=== PATIENT | male | born 1930 | race Caucasian/White ===

== ENCOUNTER 2017-10-01 05:02 | Emergency (ER) | payer MEDICARE, OTHER ==
[~2017-10-01] VITALS: Ht 172.7 cm; Wt 59.0 kg
[~2017-10-01 05:02] MED LIST: ALBU18HF2 IH; ALPR0.25 PO; BENA20TA3 PO
[2017-10-01 06:31] LABS: BASOPHILS % 0.5 % (0.0-2.0); HEMATOCRIT. 39.1 % (42.0-52.0); LYMPHOCYTES % 13.4 % (20.0-50.0); MEAN CORPUSCULAR HEMOGLOBIN 31.5 pg (28.0-32.0); MEAN CORPUSCULAR VOLUME 95.2 fL (80.0-94.0); MEAN PLATELET VOLUME 7.5 fl (7.4-10.4); MONOCYTES % 7.1 % (2.0-8.0); PLATELET 127 x1000/uL (130-400); RED BLOOD CELL COUNT 4.11 mill/uL (4.7-6.1); RED CELL DISTRIBUTION WIDTH 14.2 % (11.6-14.6)
[2017-10-01] MEDS ORDERED: ONDANSETRON HCL 4MG/2ML VIAL IV STA (06:31)
[2017-10-01] MEDS ORDERED: MORPHINE SULFATE 4 MG/ML CPJ (NOT FOR IM USE) IV STA (06:31)
[2017-10-01 06:38] LABS: PARTIAL THROMBOPLASTIN TIME 26.4 sec (23.4-31.0); PROTHROMBIN TIME 10.9 sec (9.4-11.6)
[2017-10-01 06:51] LABS: CHLORIDE 99 mEq/L (98-107)
[2017-10-01 09:31] LABS: KETONES URINE NEGATIVE (NEGATIVE); LEUKOCYTE ESTERASE URINE NEGATIVE (NEGATIVE); NITRITE URINE NEGATIVE (NEGATIVE); OCCULT BLOOD URINE NEGATIVE (NEGATIVE); PH URINE 7.5 (4.5-8.0); PROTEIN URINE NEGATIVE (NEGATIVE); UROBILINOGEN URINE 0.2 E.U./dL (0.2-1.0)
[2017-10-01 09:34] LABS: CLARITY URINE CLEAR (CLEAR); COLOR URINE PALE YELLOW (YELLOW)
[2017-10-01 11:58] VITALS: BP 156/80
== END 2017-10-01 12:03 | disposition home or self-care (01) ==
LOC: ER 05:15
DX: S30.0XXA Contusion of lower back and pelvis, initial encounter (principal); I10 Essential (primary) hypertension; J45.909 Unspecified asthma, uncomplicated; E11.9 Type 2 diabetes mellitus without complications; W01.0XXA Fall on same level from slipping, tripping and stumbling without subsequent striking against object, initial encounter; Y93.89 Activity, other specified; Y92.010 Kitchen of single-family (private) house as the place of occurrence of the external cause
CPT/HCPCS: 36415; 71045; 72100; 73521; 80053; 81003; 82962; 83690; 84484; 85025; 85610; 85730; 87086; 93005; 96374; 96375; 99285; J2270; J2405

== ENCOUNTER 2017-10-05 22:13 | Emergency (ER) | payer MEDICARE, OTHER ==
[~2017-10-05] VITALS: Ht 172.7 cm; Wt 59.0 kg
[2017-10-05] MEDS ORDERED: LIDOCAINE 5% PATCH TOP STA (23:07)
[2017-10-06 05:43] VITALS: BP 134/71
== END 2017-10-06 05:44 | disposition home or self-care (01) ==
LOC: ER 22:13
DX: S22.089A Unspecified fracture of T11-T12 vertebra, initial encounter for closed fracture (principal); I10 Essential (primary) hypertension; E11.9 Type 2 diabetes mellitus without complications; J45.909 Unspecified asthma, uncomplicated; W01.0XXA Fall on same level from slipping, tripping and stumbling without subsequent striking against object, initial encounter; Y93.89 Activity, other specified; Y99.8 Other external cause status; Y92.89 Other specified places as the place of occurrence of the external cause
CPT/HCPCS: 72131; 72192; 82962; 99284

== ENCOUNTER 2018-01-31 04:15 | Emergency (ER) | payer MEDICARE, OTHER ==
[~2018-01-31] VITALS: Ht 162.6 cm; Wt 73.0 kg
[~2018-01-31 04:15] MED LIST changes: +BENA20TA10 PO; -BENA20TA3 PO
[2018-01-31] MEDS ORDERED: ALBUTEROL (0.083%) 2.5MG/3ML NEB HHN STA (04:42)
[2018-01-31] MEDS ORDERED: IPRATROPIUM BROMIDE (0.02%) 0.5MG/2.5ML NEB HHN STA (04:42)
[2018-01-31] MEDS ORDERED: ALPRAZOLAM 0.25 MG TABLET PO ONE (04:45)
[2018-01-31 08:09] VITALS: BP 125/57
== END 2018-01-31 08:26 | disposition home or self-care (01) ==
LOC: ER 04:35
DX: J44.9 Chronic obstructive pulmonary disease, unspecified (principal); Z76.0 Encounter for issue of repeat prescription; I10 Essential (primary) hypertension; F41.9 Anxiety disorder, unspecified; E11.9 Type 2 diabetes mellitus without complications; Z99.81 Dependence on supplemental oxygen
CPT/HCPCS: 93005; 94640; 99283; J7611

== ENCOUNTER 2018-02-05 05:48 | Emergency (ER) | payer MEDICARE, OTHER ==
[~2018-02-05] VITALS: Ht 165.1 cm; Wt 64.0 kg
[2018-02-05 07:36] VITALS: BP 153/73
== END 2018-02-05 10:21 | disposition home or self-care (01) ==
LOC: ER 05:48
DX: R51 Headache (principal); I10 Essential (primary) hypertension; E11.9 Type 2 diabetes mellitus without complications; J44.9 Chronic obstructive pulmonary disease, unspecified; Z79.899 Other long term (current) drug therapy; Z90.2 Acquired absence of lung [part of]
CPT/HCPCS: 99283

== ENCOUNTER 2018-03-25 05:57 | Inpatient (IN) | payer MEDICARE, OTHER ==
[~2018-03-25] VITALS: Ht 182.9 cm; Wt 63.5 kg
[2018-03-25] MEDS ORDERED: LORAZEPAM 2MG/ML CPJ ONE (06:40)
[2018-03-25] MEDS ORDERED: LORAZEPAM 2MG/ML CPJ IM ONE (06:45)
[2018-03-25] MEDS ORDERED: LORAZEPAM 2MG/ML CPJ IM STA (06:50)
[2018-03-25] MEDS ORDERED: SODIUM CHLORIDE 0.9% 1,000 ML IV ONE (06:52)
[2018-03-25 07:28] LABS: BASOPHILS % 0.7 % (0.0-2.0); EOSINOPHILS % 1.6 % (0.0-5.0); HEMATOCRIT. 37.1 % (42.0-52.0); HEMOGLOBIN. 11.9 g/dL (14.0-18.0); LYMPHOCYTES % 15.9 % (20.0-50.0); MEAN CORPUSCULAR HEMOGLOBIN 31.3 pg (28.0-32.0); MEAN CORPUSCULAR VOLUME 97.9 fL (80.0-94.0); MEAN PLATELET VOLUME 8.3 fl (7.4-10.4); MONOCYTES % 8.9 % (2.0-8.0); NEUTROPHILS % 72.9 % (40.0-76.0); PLATELET 141 x1000/uL (130-400); RED BLOOD CELL COUNT 3.79 mill/uL (4.7-6.1)
[2018-03-25 07:31] LABS: CHLORIDE 95 mEq/L (98-107)
[2018-03-25 07:33] LABS: PARTIAL THROMBOPLASTIN TIME 24.4 sec (23.4-31.0); PROTHROMBIN TIME 10.3 sec (9.1-11.1)
[2018-03-25 07:35] LABS: ETHANOL BLOOD < 10 mg/dL
[2018-03-25 07:37] LABS: AMMONIA 20 uMol/L (<32)
[2018-03-25 08:55] LABS: BG BASE EXCESS 10.5 mmol/L (-2.0-2.0); BG CARBOXYHEMOGLOBIN 0.5 % (0.5-1.5); BG DEOXYHEMOGLOBIN 2.7 % (0.0-5.0); BG FRACTION INSPIRED OXYGEN 28; BG HCO3 ACT 38.7 mmol/L (22.0-26.0); BG METHEMOGLOBIN 0.2 % (0.0-1.5); BG OXYGEN SATURATION 97.3 % (92.0-98.5); BG OXYHEMOGLOBIN 96.6 % (94.0-97.0); BG PCO2 72.8 mmHg (35.0-45.0); BG PH 7.343 (7.350-7.450); BG PO2 105.4 mmHg (75.0-100.0); BG SAMPLE SITE LEFT RADIAL; BG TOTAL HEMOGLOBIN 11.6 g/dL (12.0-18.0); BG VENT MODE ROOM AIR
[2018-03-25 09:29] LABS: *AMPHETAMINES SCREEN URINE NEGATIVE (NEGATIVE); *BARBITURATES SCREEN URINE NEGATIVE (NEGATIVE); *BENZODIAZEPINES SCREEN URINE PRESUMTIVE POSITIVE (NEGATIVE); *COCAINE SCREEN URINE NEGATIVE (NEGATIVE)
[2018-03-25 09:30] LABS: CANNABINOID URINE SCREEN NEGATIVE (NEGATIVE); METHADONE URINE SCREEN NEGATIVE (NEGATIVE); OPIATES URINE SCREEN NEGATIVE (NEGATIVE); PHENCYCLIDINE URINE SCREEN NEGATIVE (NEGATIVE)
[2018-03-25] MEDS ORDERED: ONDANSETRON HCL 4MG/2ML INJ IV PRN (10:15)
[2018-03-25] MEDS ORDERED: ACETAMINOPHEN 325MG TABLET PO PRN (10:15)
[2018-03-25] MEDS ORDERED: TRAMADOL 50MG TABLET PO PRN (10:15)
[2018-03-25] MEDS ORDERED: GUAIFENESIN 200MG/10ML SUGAR FREE UDC PO PRN (10:15)
[2018-03-25] MEDS ORDERED: DOCUSATE SODIUM 100MG CAPSULE PO PRN (10:15)
[2018-03-25] MEDS ORDERED: NA PHOS,M-B/NA PHOS,DI-BA ENEMA 118ML PR PRN (10:15)
[2018-03-25] MEDS ORDERED: MAGNESIUM/ALUMINUM HYDROXIDE/SIMETHICONE 30ML UDC PO PRN (10:15)
[2018-03-25] MEDS ORDERED: DIPHENHYDRAMINE 50MG/ML VIAL IV PRN (10:15)
[2018-03-25] MEDS ORDERED: DEXTROSE 50% WATER 50ML SYRINGE IV PRN (10:15)
[2018-03-25] MEDS ORDERED: ZOLPIDEM TARTRATE 5MG TABLET PO PRN (10:15)
[2018-03-25] MEDS ORDERED: CLONIDINE 0.1MG TABLET PO PRN (10:15)
[2018-03-25] MEDS ORDERED: IPRATROPIUM/ALBUTEROL 0.5-3(2.5)MG/3ML NEB INH PRN (10:15)
[2018-03-25] MEDS ORDERED: NITROGLYCERIN 0.4MG TABLET SL SL PRN (10:45)
[2018-03-25 10:51] VITALS: BP 155/84
[2018-03-25] MEDS ORDERED: METHYLPREDNISOLONE SOD SUCC 125 MG/2 ML VIAL IV SCH (11:00)
[2018-03-25 12:00] VITALS: BP 154/92
[2018-03-25] MEDS ORDERED: LEVOFLOXACIN 500MG PREMIX 100 ML IV NR ×2 (12:30→16:00)
[2018-03-25] MEDS: INSULIN LISPRO 100 UNITS/ML SUBCUT SCH ×3 (13:00→20:56)
[2018-03-25] MEDS: ASPIRIN 325MG EC TABLET PO SCH (13:22)
[2018-03-25] MEDS: GUAIFENESIN/DM 600MG/30MG ER TAB 12HR PO SCH ×2 (13:22→20:42)
[2018-03-25] MEDS: FAMOTIDINE 20MG TABLET PO SCH (13:23)
[2018-03-25] MEDS: DILTIAZEM HCL 60MG TABLET PO SCH ×3 (13:23→23:22)
[2018-03-25] MEDS: BLOOD SUGAR DIAGNOSTIC STRIP TEST SCH ×3 (13:24→20:43)
[2018-03-25] MEDS: ENOXAPARIN 40MG/0.4ML SYR SUBCUT SCH (13:24)
[2018-03-25] MEDS ORDERED: FUROSEMIDE 40MG/4ML VIAL IVP NR (15:00)
[2018-03-25 15:09] LABS: CREATINE KINASE 279 IU/L (39-308)
[2018-03-25 16:00] VITALS: BP 144/67
[2018-03-25 18:00] VITALS: BP 148/72
[2018-03-25 20:00] VITALS: BP 134/59
[2018-03-25] MEDS: METHYLPREDNISOLONE SOD SUCC 40 MG/ML VIAL IV SCH (20:43)
[2018-03-25] MEDS: LISINOPRIL 20MG TABLET PO SCH (20:43)
[2018-03-25 22:00] VITALS: BP 137/5
[2018-03-26] VITALS (11 sets, daily range): BP systolic 118–155; BP diastolic 53–80
[2018-03-26 01:00] LABS: CREATINE KINASE 325 IU/L (39-308)
[2018-03-26] MEDS: METHYLPREDNISOLONE SOD SUCC 40 MG/ML VIAL IV SCH (04:23)
[2018-03-26] MEDS: IPRATROPIUM/ALBUTEROL 0.5-3(2.5)MG/3ML NEB HHN SCH ×5 (05:16→21:13)
[2018-03-26] MEDS: DILTIAZEM HCL 60MG TABLET PO SCH ×3 (06:37→17:18)
[2018-03-26] MEDS: FAMOTIDINE 20MG TABLET PO SCH (06:37)
[2018-03-26] MEDS: BLOOD SUGAR DIAGNOSTIC STRIP TEST SCH ×4 (07:30→21:00)
[2018-03-26] MEDS: INSULIN LISPRO 100 UNITS/ML SUBCUT SCH ×4 (08:34→22:49)
[2018-03-26] MEDS: GUAIFENESIN/DM 600MG/30MG ER TAB 12HR PO SCH ×3 (08:35→22:28)
[2018-03-26] MEDS: ASPIRIN 325MG EC TABLET PO SCH (08:35)
[2018-03-26] MEDS: ENOXAPARIN 40MG/0.4ML SYR SUBCUT SCH (08:35)
[2018-03-26] MEDS: LISINOPRIL 20MG TABLET PO SCH ×3 (08:36→22:28)
[2018-03-26] MEDS ORDERED: FUROSEMIDE 40MG/4ML VIAL IVP SCH (09:00)
[2018-03-26] MEDS ORDERED: PREDNISONE 20MG TABLET PO SCH (13:00)
[2018-03-26] MEDS: HALOPERIDOL LACTATE 5MG/ML VIAL IM PRN (13:07)
[2018-03-26] MEDS ORDERED: LEVOFLOXACIN 250MG PREMIX 50 ML IV SCH (15:00)
[2018-03-26] MEDS: LEVOFLOXACIN 250MG TABLET PO SCH (15:21)
[2018-03-27] VITALS (8 sets, daily range): BP systolic 132–157; BP diastolic 61–97
[2018-03-27] MEDS: IPRATROPIUM/ALBUTEROL 0.5-3(2.5)MG/3ML NEB HHN SCH ×4 (00:42→11:24)
[2018-03-27] MEDS: HALOPERIDOL LACTATE 5MG/ML VIAL IM PRN ×2 (03:34→11:28)
[2018-03-27] MEDS: DILTIAZEM HCL 60MG TABLET PO SCH ×2 (06:00)
[2018-03-27] MEDS: BLOOD SUGAR DIAGNOSTIC STRIP TEST SCH (07:53)
[2018-03-27] MEDS: INSULIN LISPRO 100 UNITS/ML SUBCUT SCH (07:53)
[2018-03-27] MEDS: ASPIRIN 325MG EC TABLET PO SCH (08:05)
[2018-03-27] MEDS: ENOXAPARIN 40MG/0.4ML SYR SUBCUT SCH (08:05)
[2018-03-27] MEDS: LISINOPRIL 20MG TABLET PO SCH (08:05)
[2018-03-27] MEDS: LEVOFLOXACIN 250MG TABLET PO SCH (08:06)
[2018-03-27] MEDS: FAMOTIDINE 20MG TABLET PO SCH (08:06)
[2018-03-27] MEDS: GUAIFENESIN/DM 600MG/30MG ER TAB 12HR PO SCH (08:08)
[2018-03-27] MEDS ORDERED: FUROSEMIDE 40MG TABLET PO SCH (09:00)
== END 2018-03-27 12:30 | disposition home or self-care (01) | DRG 140 ==
LOC: ER 05:57 → 5EST 09:09 → ENRESERV 09:20 → SUPCPDRO 10:09
PROVIDERS: ADMIT Internal Medicine; ATTEND Internal Medicine
DX: J44.1 Chronic obstructive pulmonary disease with (acute) exacerbation (principal); J96.21 Acute and chronic respiratory failure with hypoxia; G92 Toxic encephalopathy; I50.43 Acute on chronic combined systolic (congestive) and diastolic (congestive) heart failure; I31.3 Pericardial effusion (noninflammatory); K59.00 Constipation, unspecified; G47.00 Insomnia, unspecified; F41.9 Anxiety disorder, unspecified; K30 Functional dyspepsia; E11.9 Type 2 diabetes mellitus without complications; I11.0 Hypertensive heart disease with heart failure; J96.22 Acute and chronic respiratory failure with hypercapnia; Z66 Do not resuscitate; Z79.4 Long term (current) use of insulin; Z86.11 Personal history of tuberculosis; Z90.2 Acquired absence of lung [part of]; Z99.81 Dependence on supplemental oxygen
CPT/HCPCS: 36415; 36600; 71045; 80061; 80305; 82140; 82375; 82550; 82553; 82805; 82962; 83036; 83880; 84484; 93005; 93306; 93970; 94640; 96372; 97162; 97166; 99291; G0482; J1200; J1630; J1650; J1815; J1940; J1956; J2060; J2405; J2920; J2930; J7030; J7512; J7620

== ENCOUNTER 2018-06-16 09:46 | Inpatient (IN) | payer MEDICARE, OTHER ==
[~2018-06-16] VITALS: Ht 170.2 cm; Wt 69.4 kg
[2018-06-16] MEDS ORDERED: SODIUM CHLORIDE 0.9% 1000ML BAG (SEPSIS BOLUS) IV ONE (10:15)
[2018-06-16 10:26] LABS: HEMATOCRIT. 39.9 % (42.0-52.0); HEMOGLOBIN. 12.8 g/dL (14.0-18.0); MEAN CORPUSCULAR HEMOGLOBIN 31.4 pg (28.0-32.0); MEAN CORPUSCULAR VOLUME 97.6 fL (80.0-94.0); MEAN PLATELET VOLUME 8.3 fl (7.4-10.4); PLATELET 162 x1000/uL (130-400); RED BLOOD CELL COUNT 4.09 mill/uL (4.7-6.1); RED CELL DISTRIBUTION WIDTH 14.1 % (11.6-14.6)
[2018-06-16 10:33] LABS: INR 1.1; PROTHROMBIN TIME 11.4 sec (9.1-11.1)
[2018-06-16 10:34] LABS: CHLORIDE 96 mEq/L (98-107)
[2018-06-16 10:38] LABS: CLARITY URINE CLEAR (CLEAR); COLOR URINE YELLOW (YELLOW); KETONES URINE TRACE (NEGATIVE); LEUKOCYTE ESTERASE URINE NEGATIVE (NEGATIVE); NITRITE URINE NEGATIVE (NEGATIVE); OCCULT BLOOD URINE 2+ (NEGATIVE); PH URINE 5.5 (4.5-8.0); PROTEIN URINE 3+ (NEGATIVE); SPECIFIC GRAVITY URINE 1.023 (1.005-1.030)
[2018-06-16 10:43] LABS: PLATELET ESTIMATE NORMAL
[2018-06-16] MEDS ORDERED: NA PHOS,M-B/NA PHOS,DI-BA ENEMA 118ML PR PRN (14:00)
[2018-06-16] MEDS ORDERED: GUAIFENESIN 200MG/10ML SUGAR FREE UDC PO PRN (14:00)
[2018-06-16] MEDS ORDERED: DEXTROSE 50% WATER 50ML SYRINGE IV PRN (14:00)
[2018-06-16] MEDS ORDERED: MAGNESIUM/ALUMINUM HYDROXIDE/SIMETHICONE 30ML UDC PO PRN (14:00)
[2018-06-16] MEDS ORDERED: CLONIDINE 0.1MG TABLET PO PRN (14:00)
[2018-06-16] MEDS ORDERED: IPRATROPIUM/ALBUTEROL 0.5-3(2.5)MG/3ML NEB INH PRN (14:00)
[2018-06-16] MEDS ORDERED: NITROGLYCERIN 0.4MG TABLET SL SL PRN (14:00)
[2018-06-16] MEDS ORDERED: ONDANSETRON HCL 4MG/2ML INJ IV PRN (14:00)
[2018-06-16 14:30] LABS: T4 FREE 1.22 ng/dL (0.76-1.46)
[2018-06-16 14:34] LABS: FOLIC ACID (FOLATE) SERUM >20 ng/mL ng/mL (>5.38)
[2018-06-16 14:45] LABS: VITAMIN B12 SERUM 1283 pg/mL (211-911)
[2018-06-16 15:47] VITALS: BP 156/82
[2018-06-16 16:00] VITALS: BP 131/75
[2018-06-16] MEDS: DEXT 5%/0.45% NACL 1000ML 1,000 ML IV SCH (16:09)
[2018-06-16] MEDS ORDERED: LEVOFLOXACIN 500MG PREMIX 100 ML IV SCH (17:00)
[2018-06-16] MEDS: ASPIRIN 325MG EC TABLET PO SCH (17:00)
[2018-06-16] MEDS: BLOOD SUGAR DIAGNOSTIC STRIP TEST SCH ×2 (17:40→21:00)
[2018-06-16] MEDS: INSULIN LISPRO 100 UNITS/ML SUBCUT SCH ×2 (17:54→21:00)
[2018-06-16] MEDS: ENOXAPARIN 40MG/0.4ML SYR SUBCUT SCH (17:56)
[2018-06-16 18:00] VITALS: BP 142/71
[2018-06-16 19:01] VITALS: BP 185/100
[2018-06-16 20:01] VITALS: BP 186/78
[2018-06-16 20:06] LABS: *AMPHETAMINES SCREEN URINE NEGATIVE (NEGATIVE); *BARBITURATES SCREEN URINE NEGATIVE (NEGATIVE); *BENZODIAZEPINES SCREEN URINE NEGATIVE (NEGATIVE)
[2018-06-16 20:07] LABS: *COCAINE SCREEN URINE NEGATIVE (NEGATIVE); CANNABINOID URINE SCREEN NEGATIVE (NEGATIVE); METHADONE URINE SCREEN NEGATIVE (NEGATIVE); OPIATES URINE SCREEN NEGATIVE (NEGATIVE); PHENCYCLIDINE URINE SCREEN NEGATIVE (NEGATIVE)
[2018-06-16] MEDS ORDERED: ALPRAZOLAM 0.25 MG TABLET PO PRN (20:30)
[2018-06-16] MEDS ORDERED: ZOLPIDEM TARTRATE 5MG TABLET PO PRN (21:00)
[2018-06-16] MEDS: ASCORBIC ACID 500 MG TABLET PO SCH (21:20)
[2018-06-16 22:00] VITALS: BP 150/76
[2018-06-17] VITALS (15 sets, daily range): BP systolic 113–164; BP diastolic 54–80
[2018-06-17] MEDS: DILTIAZEM HCL 60MG TABLET PO SCH ×5 (00:08→23:52)
[2018-06-17 02:44] LABS: CREATINE KINASE MB FRACTION 6.1 ng/mL (0.5-3.6)
[2018-06-17] MEDS: DEXT 5%/0.45% NACL 1000ML 1,000 ML IV SCH ×2 (04:29→15:49)
[2018-06-17] MEDS: BLOOD SUGAR DIAGNOSTIC STRIP TEST SCH ×4 (07:40→21:38)
[2018-06-17] MEDS: ASCORBIC ACID 500 MG TABLET PO SCH ×2 (08:24→21:30)
[2018-06-17] MEDS: ZINC SULFATE 220 MG ( 50 ) CAPSULE PO SCH (08:24)
[2018-06-17] MEDS: PANTOPRAZOLE SODIUM 40 MG/VIAL IV SCH (08:24)
[2018-06-17] MEDS: ASPIRIN 325MG EC TABLET PO SCH (08:24)
[2018-06-17] MEDS: INSULIN LISPRO 100 UNITS/ML SUBCUT SCH ×4 (08:25→21:37)
[2018-06-17] MEDS ORDERED: VANCOMYCIN 1250MG in DEXTROSE 5% WATER 250ML IV SCH (15:00)
[2018-06-17] MEDS: LEVOFLOXACIN 500MG PREMIX 100 ML IV SCH (17:41)
[2018-06-17] MEDS: ENOXAPARIN 40MG/0.4ML SYR SUBCUT SCH (18:00)
[2018-06-18] VITALS (15 sets, daily range): BP systolic 117–165; BP diastolic 57–95
[2018-06-18] MEDS: VANCOMYCIN 1 G PREMIX 200 ML IV SCH (06:04)
[2018-06-18] MEDS: DEXT 5%/0.45% NACL 1000ML 1,000 ML IV SCH ×3 (06:04→21:37)
[2018-06-18] MEDS: DILTIAZEM HCL 60MG TABLET PO SCH ×3 (06:07→18:16)
[2018-06-18] MEDS: BLOOD SUGAR DIAGNOSTIC STRIP TEST SCH ×4 (07:30→21:38)
[2018-06-18] MEDS: INSULIN LISPRO 100 UNITS/ML SUBCUT SCH ×4 (07:31→21:43)
[2018-06-18] MEDS: ZINC SULFATE 220 MG ( 50 ) CAPSULE PO SCH (11:08)
[2018-06-18] MEDS: DOCUSATE SODIUM 100MG CAPSULE PO PRN (11:08)
[2018-06-18] MEDS: ASPIRIN 325MG EC TABLET PO SCH (11:08)
[2018-06-18] MEDS: PANTOPRAZOLE SODIUM 40 MG/VIAL IV SCH (11:08)
[2018-06-18] MEDS: ASCORBIC ACID 500 MG TABLET PO SCH ×2 (11:08→21:37)
[2018-06-18] MEDS: ENOXAPARIN 40MG/0.4ML SYR SUBCUT SCH (18:15)
[2018-06-18] MEDS: LEVOFLOXACIN 500MG PREMIX 100 ML IV SCH (18:16)
[2018-06-19] VITALS (14 sets, daily range): BP systolic 94–149; BP diastolic 53–71
[2018-06-19] MEDS: DILTIAZEM HCL 60MG TABLET PO SCH ×3 (00:24→13:03)
[2018-06-19] MEDS: VANCOMYCIN 1 G PREMIX 200 ML IV SCH ×3 (00:38→22:25)
[2018-06-19] MEDS: BLOOD SUGAR DIAGNOSTIC STRIP TEST SCH ×4 (06:19→21:00)
[2018-06-19] MEDS: ZINC SULFATE 220 MG ( 50 ) CAPSULE PO SCH (08:22)
[2018-06-19] MEDS: ASPIRIN 325MG EC TABLET PO SCH (08:22)
[2018-06-19] MEDS: ASCORBIC ACID 500 MG TABLET PO SCH ×2 (08:22→22:25)
[2018-06-19] MEDS: INSULIN LISPRO 100 UNITS/ML SUBCUT SCH ×4 (08:24→23:32)
[2018-06-19] MEDS: PANTOPRAZOLE SODIUM 40 MG/VIAL IV SCH (08:45)
[2018-06-19 11:03] LABS: CHLORIDE 97 mEq/L (98-107)
[2018-06-19 16:14] LABS: BG BASE EXCESS 10.2 mmol/L (-2.0-2.0); BG CARBOXYHEMOGLOBIN 1.1 % (0.5-1.5); BG DEOXYHEMOGLOBIN 10.4 % (0.0-5.0); BG FRACTION INSPIRED OXYGEN 100; BG HCO3 ACT 46.3 mmol/L (22.0-26.0); BG METHEMOGLOBIN 0.4 % (0.0-1.5); BG OXYGEN SATURATION 89.4 % (92.0-98.5); BG OXYHEMOGLOBIN 88.1 % (94.0-97.0); BG PO2 59.2 mmHg (75.0-100.0); BG SAMPLE SITE RIGHT RADIAL; BG TOTAL HEMOGLOBIN 14.3 g/dL (12.0-18.0); BG VENT MODE MASK - NRB
[2018-06-19 16:35] LABS: HEMATOCRIT. 43.7 % (42.0-52.0); HEMOGLOBIN. 13.7 g/dL (14.0-18.0); MEAN CORPUSCULAR HEMOGLOBIN 31.3 pg (28.0-32.0); MEAN CORPUSCULAR VOLUME 99.8 fL (80.0-94.0); MEAN PLATELET VOLUME 8.3 fl (7.4-10.4); PLATELET 187 x1000/uL (130-400); RED BLOOD CELL COUNT 4.38 mill/uL (4.7-6.1); RED CELL DISTRIBUTION WIDTH 14.2 % (11.6-14.6)
[2018-06-19 16:39] LABS: CHLORIDE 96 mEq/L (98-107)
[2018-06-19 16:58] LABS: PLATELET ESTIMATE NORMAL
[2018-06-19] MEDS: ENOXAPARIN 40MG/0.4ML SYR SUBCUT SCH (17:39)
[2018-06-19] MEDS: LEVOFLOXACIN 500MG PREMIX 100 ML IV SCH (17:40)
[2018-06-19 18:26] LABS: BG BASE EXCESS 12.8 mmol/L (-2.0-2.0); BG BILEVEL POS AIRWAY PRESSURE 20/5; BG DEOXYHEMOGLOBIN 1.5 % (0.0-5.0); BG FRACTION INSPIRED OXYGEN 100; BG HCO3 ACT 49.7 mmol/L (22.0-26.0); BG METHEMOGLOBIN 0.5 % (0.0-1.5); BG OXYGEN SATURATION 98.5 % (92.0-98.5); BG PCO2 175.1 mmHg (35.0-45.0); BG PH 7.071 (7.350-7.450); BG SAMPLE SITE RIGHT RADIAL; BG TOTAL HEMOGLOBIN 13.8 g/dL (12.0-18.0); BG VENT MODE MASK - BIPAP; BG VENT RATE 20 set
[2018-06-19] MEDS ORDERED: METHYLPREDNISOLONE SOD SUCC 40 MG/ML VIAL IV SCH (18:45)
[2018-06-19] MEDS ORDERED: NOREPINEPHRINE 16 MG in DEXT 5% WATER 234 ML IV PRN (20:00)
[2018-06-19 21:21] LABS: BG BASE EXCESS 11.6 mmol/L (-2.0-2.0); BG DEOXYHEMOGLOBIN 0.3 % (0.0-5.0); BG FRACTION INSPIRED OXYGEN 100; BG HCO3 ACT 38.8 mmol/L (22.0-26.0); BG METHEMOGLOBIN 0.3 % (0.0-1.5); BG OXYGEN SATURATION 99.7 % (92.0-98.5); BG OXYHEMOGLOBIN 98.4 % (94.0-97.0); BG PCO2 62.7 mmHg (35.0-45.0); BG PH 7.409 (7.350-7.450); BG PO2 377.5 mmHg (75.0-100.0); BG SAMPLE SITE LEFT BRACHIAL; BG TIDAL VOLUME(mL) 500 mL; BG TOTAL HEMOGLOBIN 13.2 g/dL (12.0-18.0); BG VENT MODE VENT - A/C; BG VENT RATE 20 set
[2018-06-19] MEDS: PROPOFOL 10MG/ML 100ML 100 ML IV PRN (22:21)
[2018-06-19] MEDS: METHYLPREDNISOLONE SOD SUCC 125 MG/2 ML VIAL IV SCH (22:31)
[2018-06-19] MEDS ORDERED: PIPERACILLIN/TAZ 3.375G PREMIX 50 ML IV SCH (23:00)
[2018-06-19] MEDS: IPRATROPIUM/ALBUTEROL 0.5-3(2.5)MG/3ML NEB HHN SCH (23:47)
[2018-06-20] VITALS (55 sets, daily range): BP systolic 79–153; BP diastolic 40–91
[2018-06-20] MEDS: DILTIAZEM HCL 60MG TABLET PO SCH ×5 (01:04→17:40)
[2018-06-20] MEDS: DEXT 5%/0.45% NACL 1000ML 1,000 ML IV SCH ×2 (01:05→11:03)
[2018-06-20] MEDS: PIPERACILLIN/TAZ 3.375G PREMIX 50 ML IV SCH ×3 (02:08→17:40)
[2018-06-20] MEDS: IPRATROPIUM/ALBUTEROL 0.5-3(2.5)MG/3ML NEB HHN SCH ×5 (03:46→20:20)
[2018-06-20] MEDS: PROPOFOL 10MG/ML 100ML 100 ML IV PRN ×2 (05:03→16:00)
[2018-06-20] MEDS: ACETAMINOPHEN 325MG TABLET PO PRN ×2 (05:03→09:50)
[2018-06-20 05:28] LABS: CHLORIDE 95 mEq/L (98-107)
[2018-06-20] MEDS: VANCOMYCIN 1 G PREMIX 200 ML IV SCH (06:48)
[2018-06-20] MEDS: BLOOD SUGAR DIAGNOSTIC STRIP TEST SCH ×4 (06:49→21:02)
[2018-06-20] MEDS: METHYLPREDNISOLONE SOD SUCC 125 MG/2 ML VIAL IV SCH (08:00)
[2018-06-20] MEDS: INSULIN LISPRO 100 UNITS/ML SUBCUT SCH ×4 (08:00→21:15)
[2018-06-20] MEDS: ASPIRIN 325MG TABLET NG SCH (08:18)
[2018-06-20] MEDS: PANTOPRAZOLE SODIUM 40 MG/VIAL IV SCH (08:18)
[2018-06-20] MEDS: ZINC SULFATE 220 MG ( 50 ) CAPSULE PO SCH (08:18)
[2018-06-20] MEDS: ASCORBIC ACID 500 MG TABLET PO SCH ×2 (08:18→21:14)
[2018-06-20 08:45] LABS: BG BASE EXCESS 15.3 mmol/L (-2.0-2.0); BG CARBOXYHEMOGLOBIN 0.6 % (0.5-1.5); BG DEOXYHEMOGLOBIN 0.7 % (0.0-5.0); BG FRACTION INSPIRED OXYGEN 50; BG HCO3 ACT 37.6 mmol/L (22.0-26.0); BG METHEMOGLOBIN 0.3 % (0.0-1.5); BG OXYGEN SATURATION 99.3 % (92.0-98.5); BG OXYHEMOGLOBIN 98.4 % (94.0-97.0); BG PCO2 36.6 mmHg (35.0-45.0); BG PH 7.629 (7.350-7.450); BG PO2 162.2 mmHg (75.0-100.0); BG SAMPLE SITE RIGHT RADIAL; BG TIDAL VOLUME(mL) 500 mL; BG TOTAL HEMOGLOBIN 11.5 g/dL (12.0-18.0); BG VENT MODE VENT - A/C; BG VENT RATE 20 set
[2018-06-20] MEDS ORDERED: SODIUM CHLORIDE 10% FOR INH 15ML VIAL NEB INH SCH (10:15)
[2018-06-20] MEDS: ENOXAPARIN 40MG/0.4ML SYR SUBCUT SCH (17:39)
[2018-06-20] MEDS: VANCOMYCIN 1250MG in DEXTROSE 5% WATER 250ML IV SCH (21:27)
[2018-06-21] VITALS (88 sets, daily range): BP systolic 73–168; BP diastolic 40–110
[2018-06-21] MEDS: IPRATROPIUM/ALBUTEROL 0.5-3(2.5)MG/3ML NEB HHN SCH ×6 (00:05→19:57)
[2018-06-21] MEDS: DEXT 5%/0.45% NACL 1000ML 1,000 ML IV SCH ×2 (00:28→13:30)
[2018-06-21] MEDS: DILTIAZEM HCL 60MG TABLET PO SCH ×5 (00:29→23:24)
[2018-06-21] MEDS: PIPERACILLIN/TAZ 3.375G PREMIX 50 ML IV SCH ×3 (02:17→19:34)
[2018-06-21] MEDS: PROPOFOL 10MG/ML 100ML 100 ML IV PRN ×2 (06:00→09:22)
[2018-06-21] MEDS: INSULIN LISPRO 100 UNITS/ML SUBCUT SCH ×4 (06:01→21:31)
[2018-06-21] MEDS: BLOOD SUGAR DIAGNOSTIC STRIP TEST SCH ×4 (06:30→21:00)
[2018-06-21] MEDS: VANCOMYCIN 1250MG in DEXTROSE 5% WATER 250ML IV SCH ×2 (09:12→21:30)
[2018-06-21] MEDS: ASCORBIC ACID 500 MG TABLET PO SCH ×2 (09:12→21:30)
[2018-06-21] MEDS: ASPIRIN 325MG TABLET NG SCH (09:12)
[2018-06-21] MEDS: DOCUSATE SODIUM 100MG CAPSULE PO PRN (09:12)
[2018-06-21] MEDS: PANTOPRAZOLE SODIUM 40 MG/VIAL IV SCH (09:12)
[2018-06-21] MEDS: ZINC SULFATE 220 MG ( 50 ) CAPSULE PO SCH (09:13)
[2018-06-21] MEDS ORDERED: SODIUM CHLORIDE 0.9% 1,000 ML IV ONE (11:15)
[2018-06-21 12:15] LABS: BG BASE EXCESS 9.9 mmol/L (-2.0-2.0); BG CARBOXYHEMOGLOBIN 0.3 % (0.5-1.5); BG FRACTION INSPIRED OXYGEN 50; BG HCO3 ACT 34.4 mmol/L (22.0-26.0); BG METHEMOGLOBIN 0.2 % (0.0-1.5); BG OXYHEMOGLOBIN 98.5 % (94.0-97.0); BG PCO2 45.6 mmHg (35.0-45.0); BG PH 7.495 (7.350-7.450); BG PO2 192.7 mmHg (75.0-100.0); BG SAMPLE SITE RIGHT RADIAL; BG TIDAL VOLUME(mL) 450 mL; BG TOTAL HEMOGLOBIN 11.7 g/dL (12.0-18.0); BG VENT MODE VENT - A/C; BG VENT RATE 14 set
[2018-06-21 12:48] LABS: INR 1.1; PROTHROMBIN TIME 11.1 sec (9.1-11.1)
[2018-06-21 12:52] LABS: HEMATOCRIT. 33.4 % (42.0-52.0); MEAN CORPUSCULAR HEMOGLOBIN 31.3 pg (28.0-32.0); MEAN PLATELET VOLUME 8.4 fl (7.4-10.4); PLATELET 115 x1000/uL (130-400); RED BLOOD CELL COUNT 3.51 mill/uL (4.7-6.1); RED CELL DISTRIBUTION WIDTH 13.6 % (11.6-14.6)
[2018-06-21 12:57] LABS: CHLORIDE 97 mEq/L (98-107)
[2018-06-21 13:42] LABS: PLATELET ESTIMATE DECREASED
[2018-06-21] MEDS: BUDESONIDE 0.5MG/2ML NEB HHN SCH (15:16)
[2018-06-21] MEDS: ENOXAPARIN 40MG/0.4ML SYR SUBCUT SCH (19:23)
[2018-06-22] VITALS (98 sets, daily range): BP systolic 90–158; BP diastolic 44–93
[2018-06-22] MEDS: IPRATROPIUM/ALBUTEROL 0.5-3(2.5)MG/3ML NEB HHN SCH ×6 (00:23→21:00)
[2018-06-22] MEDS: BUDESONIDE 0.5MG/2ML NEB HHN SCH ×2 (00:23→21:00)
[2018-06-22] MEDS: PIPERACILLIN/TAZ 3.375G PREMIX 50 ML IV SCH ×3 (01:19→17:58)
[2018-06-22] MEDS: PROPOFOL 10MG/ML 100ML 100 ML IV PRN ×3 (01:20→16:58)
[2018-06-22 05:04] LABS: CHLORIDE 98 mEq/L (98-107)
[2018-06-22] MEDS: DILTIAZEM HCL 60MG TABLET PO SCH ×4 (05:10→23:55)
[2018-06-22] MEDS: BLOOD SUGAR DIAGNOSTIC STRIP TEST SCH ×4 (05:40→20:35)
[2018-06-22] MEDS: DEXT 5%/0.45% NACL 1000ML 1,000 ML IV SCH ×2 (05:46→17:10)
[2018-06-22] MEDS: INSULIN LISPRO 100 UNITS/ML SUBCUT SCH ×4 (05:46→20:36)
[2018-06-22] MEDS ORDERED: PROPOFOL 10MG/ML 100ML 100 ML IV PRN (07:30)
[2018-06-22 08:39] LABS: BG BASE EXCESS 10.2 mmol/L (-2.0-2.0); BG CARBOXYHEMOGLOBIN 0.3 % (0.5-1.5); BG DEOXYHEMOGLOBIN 1.2 % (0.0-5.0); BG FRACTION INSPIRED OXYGEN 40; BG HCO3 ACT 34.8 mmol/L (22.0-26.0); BG METHEMOGLOBIN 0.3 % (0.0-1.5); BG OXYGEN SATURATION 98.8 % (92.0-98.5); BG OXYHEMOGLOBIN 98.2 % (94.0-97.0); BG PCO2 46.5 mmHg (35.0-45.0); BG PH 7.492 (7.350-7.450); BG PO2 168.1 mmHg (75.0-100.0); BG SAMPLE SITE RIGHT RADIAL; BG TIDAL VOLUME(mL) 450 mL; BG TOTAL HEMOGLOBIN 11.8 g/dL (12.0-18.0); BG VENT MODE VENT - A/C; BG VENT RATE 14 set
[2018-06-22] MEDS: ZINC SULFATE 220 MG ( 50 ) CAPSULE PO SCH (09:15)
[2018-06-22] MEDS: DOCUSATE SODIUM 100MG CAPSULE PO PRN (09:15)
[2018-06-22] MEDS: PANTOPRAZOLE SODIUM 40 MG/VIAL IV SCH (09:15)
[2018-06-22] MEDS: ASCORBIC ACID 500 MG TABLET PO SCH ×2 (09:15→20:36)
[2018-06-22] MEDS: ASPIRIN 325MG TABLET NG SCH (09:15)
[2018-06-22] MEDS ORDERED: MORPHINE SULFATE 4 MG/ML CPJ (NOT FOR IM USE) IV PRN (09:35)
[2018-06-22 10:30] LABS: HEMATOCRIT. 36.3 % (42.0-52.0); HEMOGLOBIN. 12.1 g/dL (14.0-18.0); MEAN CORPUSCULAR HEMOGLOBIN 31.5 pg (28.0-32.0); MEAN CORPUSCULAR VOLUME 94.8 fL (80.0-94.0); PLATELET 126 x1000/uL (130-400); RED BLOOD CELL COUNT 3.83 mill/uL (4.7-6.1); RED CELL DISTRIBUTION WIDTH 13.9 % (11.6-14.6)
[2018-06-22 10:59] LABS: BG CARBOXYHEMOGLOBIN 0.2 % (0.5-1.5); BG DEOXYHEMOGLOBIN 1.3 % (0.0-5.0); BG FRACTION INSPIRED OXYGEN 40; BG HCO3 ACT 39.4 mmol/L (22.0-26.0); BG METHEMOGLOBIN 0.1 % (0.0-1.5); BG OXYGEN SATURATION 98.7 % (92.0-98.5); BG OXYHEMOGLOBIN 98.4 % (94.0-97.0); BG PCO2 47.7 mmHg (35.0-45.0); BG PH 7.535 (7.350-7.450); BG PO2 141.4 mmHg (75.0-100.0); BG SAMPLE SITE RIGHT RADIAL; BG TIDAL VOLUME(mL) 450 mL; BG TOTAL HEMOGLOBIN 11.6 g/dL (12.0-18.0); BG VENT MODE VENT - A/C; BG VENT RATE 14 set
[2018-06-22 15:48] LABS: NUCLEATED RED BLOOD CELLS 1 /100 WBC; PLATELET ESTIMATE NORMAL
[2018-06-22] MEDS: VANCOMYCIN 1500MG in DEXTROSE 5% WATER 250ML IV SCH (16:59)
[2018-06-22] MEDS: ENOXAPARIN 40MG/0.4ML SYR SUBCUT SCH (16:59)
[2018-06-22] MEDS: DOCUSATE SODIUM SUGAR FREE 100MG/10ML UDC NG SCH (17:57)
[2018-06-22] MEDS ORDERED: BISACODYL 10MG SUPP PR PRN (18:00)
[2018-06-23] VITALS (87 sets, daily range): BP systolic 86–143; BP diastolic 40–85
[2018-06-23] MEDS: IPRATROPIUM/ALBUTEROL 0.5-3(2.5)MG/3ML NEB HHN SCH ×6 (00:06→20:20)
[2018-06-23] MEDS: PROPOFOL 10MG/ML 100ML 100 ML IV PRN ×4 (01:53→20:27)
[2018-06-23] MEDS: PIPERACILLIN/TAZ 3.375G PREMIX 50 ML IV SCH ×3 (02:00→17:24)
[2018-06-23 05:07] LABS: HEMATOCRIT. 32.3 % (42.0-52.0); HEMOGLOBIN. 10.6 g/dL (14.0-18.0); MEAN CORPUSCULAR HEMOGLOBIN 31.3 pg (28.0-32.0); MEAN CORPUSCULAR VOLUME 95.2 fL (80.0-94.0); MEAN PLATELET VOLUME 8.6 fl (7.4-10.4); PLATELET 114 x1000/uL (130-400); RED BLOOD CELL COUNT 3.39 mill/uL (4.7-6.1); RED CELL DISTRIBUTION WIDTH 13.9 % (11.6-14.6)
[2018-06-23 05:10] LABS: CHLORIDE 101 mEq/L (98-107)
[2018-06-23] MEDS: DILTIAZEM HCL 60MG TABLET PO SCH (06:00)
[2018-06-23] MEDS: BLOOD SUGAR DIAGNOSTIC STRIP TEST SCH ×4 (06:18→21:22)
[2018-06-23] MEDS: INSULIN LISPRO 100 UNITS/ML SUBCUT SCH ×4 (06:20→21:32)
[2018-06-23] MEDS: BUDESONIDE 0.5MG/2ML NEB HHN SCH ×2 (08:05→20:20)
[2018-06-23] MEDS: ZINC SULFATE 220 MG ( 50 ) CAPSULE PO SCH (08:30)
[2018-06-23] MEDS: ASCORBIC ACID 500 MG TABLET PO SCH ×2 (08:30→20:48)
[2018-06-23] MEDS: DOCUSATE SODIUM SUGAR FREE 100MG/10ML UDC NG SCH (08:30)
[2018-06-23] MEDS: ASPIRIN 325MG TABLET NG SCH (08:31)
[2018-06-23] MEDS: PANTOPRAZOLE SODIUM 40 MG/VIAL IV SCH (08:31)
[2018-06-23] MEDS: DEXT 5%/0.45% NACL 1000ML 1,000 ML IV SCH ×2 (08:35→20:24)
[2018-06-23] MEDS: VANCOMYCIN 1500MG in DEXTROSE 5% WATER 250ML IV SCH (10:32)
[2018-06-23 10:35] LABS: PLATELET ESTIMATE SLIGHTLY DECREASED
[2018-06-23 12:07] LABS: BG CARBOXYHEMOGLOBIN 0.3 % (0.5-1.5); BG DEOXYHEMOGLOBIN 1.5 % (0.0-5.0); BG FRACTION INSPIRED OXYGEN 40; BG HCO3 ACT 34.6 mmol/L (22.0-26.0); BG METHEMOGLOBIN 0.1 % (0.0-1.5); BG OXYGEN SATURATION 98.5 % (92.0-98.5); BG OXYHEMOGLOBIN 98.1 % (94.0-97.0); BG PCO2 46.7 mmHg (35.0-45.0); BG PH 7.487 (7.350-7.450); BG PO2 142.3 mmHg (75.0-100.0); BG SAMPLE SITE RIGHT RADIAL; BG TIDAL VOLUME(mL) 450 mL; BG TOTAL HEMOGLOBIN 11.1 g/dL (12.0-18.0); BG VENT MODE VENT - A/C; BG VENT RATE 14 set
[2018-06-23] MEDS ORDERED: POTASSIUM CHLORIDE 20MEQ/PACKET PO NR (16:15)
[2018-06-23] MEDS: ENOXAPARIN 40MG/0.4ML SYR SUBCUT SCH (17:09)
[2018-06-24] VITALS (87 sets, daily range): BP systolic 82–216; BP diastolic 37–113
[2018-06-24] MEDS: IPRATROPIUM/ALBUTEROL 0.5-3(2.5)MG/3ML NEB HHN SCH ×6 (00:13→20:23)
[2018-06-24] MEDS: PIPERACILLIN/TAZ 3.375G PREMIX 50 ML IV SCH ×3 (02:30→18:02)
[2018-06-24] MEDS: VANCOMYCIN 1500MG in DEXTROSE 5% WATER 250ML IV SCH (04:59)
[2018-06-24] MEDS: BLOOD SUGAR DIAGNOSTIC STRIP TEST SCH ×3 (05:31→16:30)
[2018-06-24] MEDS: INSULIN LISPRO 100 UNITS/ML SUBCUT SCH ×3 (06:04→17:00)
[2018-06-24 06:23] LABS: BASOPHILS % 0.1 % (0.0-2.0); EOSINOPHILS % 3.3 % (0.0-5.0); HEMATOCRIT. 31.1 % (42.0-52.0); HEMOGLOBIN. 10.2 g/dL (14.0-18.0); LYMPHOCYTES % 8.9 % (20.0-50.0); MEAN CORPUSCULAR HEMOGLOBIN 31.3 pg (28.0-32.0); MEAN CORPUSCULAR VOLUME 94.9 fL (80.0-94.0); MEAN PLATELET VOLUME 8.9 fl (7.4-10.4); MONOCYTES % 8.3 % (2.0-8.0); NEUTROPHILS % 79.4 % (40.0-76.0); PLATELET 109 x1000/uL (130-400); RED BLOOD CELL COUNT 3.28 mill/uL (4.7-6.1); RED CELL DISTRIBUTION WIDTH 14.3 % (11.6-14.6)
[2018-06-24 06:39] LABS: CHLORIDE 102 mEq/L (98-107)
[2018-06-24] MEDS: DEXT 5%/0.45% NACL 1000ML 1,000 ML IV SCH ×2 (08:26→22:06)
[2018-06-24] MEDS: PROPOFOL 10MG/ML 100ML 100 ML IV PRN (08:50)
[2018-06-24] MEDS: BUDESONIDE 0.5MG/2ML NEB HHN SCH (09:01)
[2018-06-24] MEDS: DOCUSATE SODIUM SUGAR FREE 100MG/10ML UDC NG SCH (10:39)
[2018-06-24] MEDS: PANTOPRAZOLE SODIUM 40 MG/VIAL IV SCH (10:39)
[2018-06-24] MEDS: ASPIRIN 325MG TABLET NG SCH (10:39)
[2018-06-24] MEDS: ASCORBIC ACID 500 MG TABLET PO SCH ×2 (10:40→22:05)
[2018-06-24] MEDS: ZINC SULFATE 220 MG ( 50 ) CAPSULE PO SCH (10:40)
[2018-06-24 12:43] LABS: BG BASE EXCESS 11.4 mmol/L (-2.0-2.0); BG CARBOXYHEMOGLOBIN 0.7 % (0.5-1.5); BG DEOXYHEMOGLOBIN 30.5 % (0.0-5.0); BG FRACTION INSPIRED OXYGEN 40; BG HCO3 ACT 45.2 mmol/L (22.0-26.0); BG METHEMOGLOBIN 0.4 % (0.0-1.5); BG OXYGEN SATURATION 69.2 % (92.0-98.5); BG OXYHEMOGLOBIN 68.4 % (94.0-97.0); BG PCO2 127.1 mmHg (35.0-45.0); BG PH 7.169 (7.350-7.450); BG PO2 47.1 mmHg (75.0-100.0); BG PRESSURE SUPPORT 8; BG SAMPLE SITE RIGHT RADIAL; BG TOTAL HEMOGLOBIN 13.8 g/dL (12.0-18.0); BG VENT MODE VENT - CPAP
[2018-06-24] MEDS: ENOXAPARIN 40MG/0.4ML SYR SUBCUT SCH (18:02)
[2018-06-25] VITALS (83 sets, daily range): BP systolic 98–191; BP diastolic 38–91
[2018-06-25] MEDS: IPRATROPIUM/ALBUTEROL 0.5-3(2.5)MG/3ML NEB HHN SCH ×6 (00:08→20:08)
[2018-06-25] MEDS: INSULIN LISPRO 100 UNITS/ML SUBCUT SCH ×4 (00:36→18:50)
[2018-06-25] MEDS: VANCOMYCIN 1500MG in DEXTROSE 5% WATER 250ML IV SCH ×2 (00:37→16:53)
[2018-06-25] MEDS: BLOOD SUGAR DIAGNOSTIC STRIP TEST SCH ×4 (00:39→18:44)
[2018-06-25] MEDS: PROPOFOL 10MG/ML 100ML 100 ML IV SCH ×3 (01:04→16:53)
[2018-06-25] MEDS: PIPERACILLIN/TAZ 3.375G PREMIX 50 ML IV SCH ×3 (03:38→18:44)
[2018-06-25] MEDS: ASCORBIC ACID 500 MG TABLET PO SCH ×2 (09:36→21:58)
[2018-06-25] MEDS: ZINC SULFATE 220 MG ( 50 ) CAPSULE PO SCH (09:36)
[2018-06-25] MEDS: PANTOPRAZOLE SODIUM 40 MG/VIAL IV SCH ×2 (09:36→21:58)
[2018-06-25] MEDS: ASPIRIN 325MG TABLET NG SCH (09:37)
[2018-06-25] MEDS: DEXT 5%/0.45% NACL 1000ML 1,000 ML IV SCH (12:31)
[2018-06-25] MEDS: DOCUSATE SODIUM SUGAR FREE 100MG/10ML UDC NG SCH (16:52)
[2018-06-26] VITALS (45 sets, daily range): BP systolic 94–228; BP diastolic 45–109
[2018-06-26] MEDS: IPRATROPIUM/ALBUTEROL 0.5-3(2.5)MG/3ML NEB HHN SCH ×5 (00:27→16:29)
[2018-06-26] MEDS: PROPOFOL 10MG/ML 100ML 100 ML IV PRN ×2 (03:05→08:29)
[2018-06-26] MEDS: PIPERACILLIN/TAZ 3.375G PREMIX 50 ML IV SCH ×3 (03:17→17:01)
[2018-06-26] MEDS: DEXT 5%/0.45% NACL 1000ML 1,000 ML IV SCH (05:17)
[2018-06-26 05:23] LABS: HEMATOCRIT. 30.8 % (42.0-52.0); HEMOGLOBIN. 10.1 g/dL (14.0-18.0); MEAN CORPUSCULAR HEMOGLOBIN 31.4 pg (28.0-32.0); MEAN CORPUSCULAR VOLUME 95.8 fL (80.0-94.0); PLATELET 137 x1000/uL (130-400); RED BLOOD CELL COUNT 3.22 mill/uL (4.7-6.1); RED CELL DISTRIBUTION WIDTH 14.3 % (11.6-14.6)
[2018-06-26 05:35] LABS: CHLORIDE 103 mEq/L (98-107)
[2018-06-26] MEDS: INSULIN LISPRO 100 UNITS/ML SUBCUT SCH ×4 (06:00→18:00)
[2018-06-26] MEDS: BLOOD SUGAR DIAGNOSTIC STRIP TEST SCH ×4 (06:04→18:45)
[2018-06-26] MEDS: PANTOPRAZOLE SODIUM 40 MG/VIAL IV SCH (08:29)
[2018-06-26] MEDS: DOCUSATE SODIUM SUGAR FREE 100MG/10ML UDC NG SCH ×2 (08:29→08:39)
[2018-06-26] MEDS: ASCORBIC ACID 500 MG TABLET PO SCH ×2 (08:30→08:39)
[2018-06-26] MEDS: ZINC SULFATE 220 MG ( 50 ) CAPSULE PO SCH ×2 (08:30→08:39)
[2018-06-26 08:45] LABS: BG FRACTION INSPIRED OXYGEN 40; BG SAMPLE SITE RIGHT RADIAL; BG TIDAL VOLUME(mL) 450 mL; BG VENT MODE VENT - A/C; BG VENT RATE 14 set
[2018-06-26 08:56] LABS: BG OXYGEN SATURATION 98.9 % (92.0-98.5)
[2018-06-26 08:58] LABS: BG PCO2 54.1 mmHg (35.0-45.0); BG PH 7.448 (7.350-7.450)
[2018-06-26 08:59] LABS: BG BASE EXCESS 10.8 mmol/L (-2.0-2.0); BG HCO3 ACT 36.6 mmol/L (22.0-26.0); BG PO2 143.8 mmHg (75.0-100.0)
[2018-06-26 09:00] LABS: BG CARBOXYHEMOGLOBIN 0.8 % (0.5-1.5); BG DEOXYHEMOGLOBIN 1.1 % (0.0-5.0); BG METHEMOGLOBIN 0.3 % (0.0-1.5); BG OXYHEMOGLOBIN 97.8 % (94.0-97.0); BG TOTAL HEMOGLOBIN 11.9 g/dL (12.0-18.0)
[2018-06-26] MEDS ORDERED: PROPOFOL 10MG/ML 100ML 100 ML IV PRN (10:00)
[2018-06-26] MEDS ORDERED: MIDAZOLAM HCL 2 MG/2 ML VIAL ONE (11:08)
[2018-06-26] MEDS ORDERED: ROCURONIUM BROMIDE 10MG/ML VIAL 5ML IV ONE ×2 (11:08→14:54)
[2018-06-26 11:44] LABS: PLATELET ESTIMATE NORMAL
[2018-06-26] MEDS: VANCOMYCIN 1500MG in DEXTROSE 5% WATER 250ML IV SCH (12:30)
[2018-06-26] MEDS ORDERED: HYDRALAZINE HCL 50MG TABLET PO SCH (14:00)
[2018-06-26] MEDS ORDERED: FENTANYL CITRATE/PF 50MCG/ML 2ML VIAL ONE (15:14)
[2018-06-26] MEDS ORDERED: DEXT 5%/0.45% NACL 1000ML 1,000 ML IV SCH ×2 (21:45→22:00)
== END 2018-06-26 19:15 | disposition short-term general hospital (02) | DRG 720 ==
LOC: ER 09:53 → 5EST 12:55 → EDBEDREQTM 13:00 → EDBEDREQ 13:00 → ENRESERV 13:42 → MICUSO 06-19 21:43
PROVIDERS: ADMIT Internal Medicine; ATTEND Internal Medicine
PROC: 5A1955Z Respiratory Ventilation, Greater than 96 Consecutive Hours (ICD-10-PCS; principal; 2018-06-19)
PROC: 0BH17EZ Insertion of Endotracheal Airway into Trachea, Via Natural or Artificial Opening (ICD-10-PCS; 2018-06-19)
DX: A41.9 Sepsis, unspecified organism (principal); J96.22 Acute and chronic respiratory failure with hypercapnia; J18.9 Pneumonia, unspecified organism; G93.41 Metabolic encephalopathy; J44.0 Chronic obstructive pulmonary disease with (acute) lower respiratory infection; E46 Unspecified protein-calorie malnutrition; I11.0 Hypertensive heart disease with heart failure; I50.42 Chronic combined systolic (congestive) and diastolic (congestive) heart failure; J44.1 Chronic obstructive pulmonary disease with (acute) exacerbation; F03.90 Unspecified dementia, unspecified severity, without behavioral disturbance, psychotic disturbance, mood disturbance, and anxiety; E11.9 Type 2 diabetes mellitus without complications; C61 Malignant neoplasm of prostate; D50.9 Iron deficiency anemia, unspecified; Z66 Do not resuscitate; Z79.4 Long term (current) use of insulin; Z99.81 Dependence on supplemental oxygen; Z85.46 Personal history of malignant neoplasm of prostate; Z90.2 Acquired absence of lung [part of]
CPT/HCPCS: 31500; 36415; 36600; 70551; 71045; 72170; 80048; 80061; 80076; 80202; 80305; 82140; 82248; 82375; 82550; 82553; 82607; 82746; 82805; 82962; 83036; 83540; 83550; 83605; 84145; 84439; 84443; 84478; 84484; 85007; 85027; 87070; 93005; 93306; 93970; 94002; 94003; 94640; 94660; 96374; 97162; 97166; 99285; A6261; C9113; J1650; J1815; J1956; J2250; J2270; J2405; J2543; J2704; J2930; J3010; J3370; J3490; J7030; J7050; J7060; J7131; J7620; J7626; A4315